=== PATIENT | female | born 1955 | race Caucasian/White ===

== ENCOUNTER 2023-01-08 11:57 | Outpatient (REF) | payer MEDICARE, SELFPAY ==
--- NOTE | 2023-01-08 13:40 | PAPFT_PTH ---
PATIENT: Adele Novak LOC: [facility] U#:[id number] AGE/SX: 67/F ROOM: RE01/08/[address]: Marquez Rose DNP : 1955 BED: DIS: 01/08/2023 SPEC #: [id number] RECD: 01/09/23 13:02 STATUS: BENSON REQ #: [id number] KARRI: 01/08/23 13:[address]: Marquez Clement DEPT: [facility] Cytology RECD BY: Razia Shields Tissues: 1 - CX/ENDOCX FOR PAP SMEARS Procedures: PAP THIN PREP/UVM Screening HPV DNA PROBE Comments: [id number] (HPV 16 & 18/45)
--- OUTSIDE RECORDS SUMMARY | 2023-01-09 11:54 | XMS_ITS | Continuity of Care Document ---
Author Name Unknown Organization [facility] Address [address] [place] [address] Care Team Providers Care Contribution Solicitor Name Role Phone Edel Martinez Primary Care Physician Encounter [facility] Date(s): 10/21/22 - 10/21/22 [facility] [address] [place] [address] Encounter Diagnosis Obstructive sleep apnea, adult(Discharge Diagnosis) - 10/18/22 Discharge Disposition: Home or Self Care Attending Physician: Edel Martinez KIDS CLUB ATTENDANT Allergies, Adverse Reactions, Alerts No Known Medication Allergies Assessment and Plan Future Appointments Functional Status 10/21/22 Other exposure to Infectious Disease Non e Immunizations Given and Recorded Vaccine Date Status Refusal Reason tetanus-diphth toxoids (Td) adult/adol 10/24/21 Re corded tetanus-diphth toxoids (Td) adult/adol 10/06/02 Re corded influenza virus vaccine, live 10/24/21 Recorded influenza virus vaccine, live 07/12/20 Recorded influenza virus vaccine, live 07/26/19 Recorded influenza virus vaccine, live 08/19/18 Recorded influenza virus vaccine, live 07/30/17 Recorded influenza virus vaccine, live 07/24/16 Recorded SARS-CoV-2 (COVID-19) mRNA-1273 vaccine 09/04/21 R ecorded SARS-CoV-2 (COVID-19) mRNA-1273 vaccine 02/16/21 R ecorded SARS-CoV-2 (COVID-19) mRNA-1273 vaccine 01/19/21 R ecorded pneumococcal 23-polyvalent vaccine 12/18/20 Record ed zoster vaccine, inactivated 12/18/20 Recorded zoster vaccine, inactivated 10/09/20 Recorded zoster vaccine live 07/30/17 Recorded tetanus/diphth/pertuss (Tdap) adult/adol 10/06/11 Recorded influenza virus vaccine, inactivated 09/04/11 Neo rded influenza virus vaccine, inactivated 08/21/10 Neo rded Medications !-Augmentin 875 mg-125 mg oral tablet 1 tab, Oral, every 12 hr, # 20 tab, 0 Refill(s), Pharmacy: [id number], 160, cm, 07/21/22 23:30:00 EDT, Height/Length Dosing, 68.04, kg, 07/21/22 23:30:00 EDT, Weight Dosing Start Date: 07/21/22 Stop Date: 07/31/22 Status: Ordered amoxicillin-clavulanate 875 mg-125 mg oral tablet 0 Refill(s) Start Date: 04/01/22 Status: Ordered multivitamin adult, oral tablet 0 Refill(s) Start Date: 04/01/22 Status: Ordered ProAir HFA 90 mcg/inh inhalation aerosol 0 Refill(s) Start Date: 04/01/22 Status: Ordered sertraline 50 mg oral tablet 0 Refill(s) Start Date: 04/01/22 Status: Ordered simvastatin 40 mg oral tablet 0 Refill(s) Start Date: 04/01/22 Status: Ordered Vitamin C 1000 mg oral tablet 1,000 mg = 1 tab, Oral, Daily, # 30 tab, 0 Refill(s) Start Date: 04/01/22 Status: Ordered Vitamin D3 0 Refill(s) Start Date: 04/01/22 Status: Ordered Problem List Condition Confirmation Course Effective Dates Status H ealth Status Informant Abscess of Bartholin's gland Confirmed Active Adult health examination Confirmed Active Cough Confirmed 01/07/20 Active Depressive disorder Confirmed Active Disorder of upper respiratory system Confirmed Active Generalized anxiety disorder Confirmed Active Hyperlipidemia Confirmed Active Menopausal symptom Confirmed Active Obstructive sleep apnea, adult Confirmed Active Pain in left foot Confirmed Active Snoring Confirmed Active Vital Signs Most recent to oldest [Reference Range]: 1 Peripheral Pulse Rate [60-100 bpm] 70 bp m (10/21/22 10:27 AM) Blood Pressure [90-140/60-90 mmHg] 140/7 4mmHg (10/21/22 10:27 AM) Weight 70.31 kg (10/21/22 10:27 AM) Weight Measured (lbs) 155.007 lb (10/21/22 10:27 AM) Height 160 cm (10/21/22 10:27 AM) Height/Length Measured (inches) 62.99 in ch (10/21/22 10:27 AM) BSA Measured 1.77 m2 (10/21/22 10:27 AM) Body Mass Index 27.46 kg/m2 (10/21/22 10:27 AM) Social History Social History Type Response Tobacco Never tobacco user T obacco Use:. Sex Female Progress note * Nj Harrison M: PERFORM Event Display: Progress Note - Physician Authored Date: [id number] Physician Outpatient Note * Edel Martinez KIDS CLUB ATTENDANT: PERFORM Event Display: Office Clinic Note Physician Authored Date: [id number] BHUMI NOVAKNDA Tani :1955 Age:67 years Sex:Female Visit Date:10/21/2022 Primary Care Physician: Edel Martinez NP History of Present Illness Adele Novak??has a Zoom visit for SONIA follow-up. She has given consent to have a telehealth visit. Patient is at home, provider is in the office. ?? Adele was seen by me on 06/14/22. She has a medical history to include depression, anxiety and HLD.? She noted symptoms of??snoring and witnessed apneas when under anesthesia. ?? Polysomnogram??05/09/22(BMI??25.45). I.??Sleep efficiency was??82%, AHI??28.8/hr, RDI??30.2/hr, REM AHI??8.7/hr, REM RDI??8.7/hr, supine AHI??80/hr, right lateral AHI??34/hr, left lateral AHI??14/hr, sp02 lili??79%,??19??minutes were spent at a saturation <88%, arousal index??19/hr, PLMi??3.8/hr, PLM arousal index??0.9/hr. EKG showed NSR??with one brief episode SVT. ?? Last visit I ordered CPAP 6-16 cm. ?? Adele tells me she is using her CPAP every night. She has had her CPAP since 07/15/22. She says things are going pretty good overall. She is using a full face mask. She has to put it on tight in order to prevent leaks and it leaves rodriguez on her face. She tried nasal pillows but they would not stay on at night. The air pressure feels strong initially but she adjusts quickly. She is waking with a VERY dry mouth. She did adjust the humidity but the developed water in her mask. She says right away when she started using CPAP she is feeling better and wakes up much more refreshed and gets out of bed much easier. She has better energy throughout the day. She is familiar with cleaning and changing out parts. ?? ESS today 04/28 COMPLIANCE DATA REVIEWED WITH PATIENT: Dates 09/15/22-10/14/22,??Days used , average use??7 hours, 6 minutes,??median pressure 10.9??cm,??95 th percentile pressure??13.6 cm,??95 th percentile air leak 2.8??lpm, AHI 0.2/hr Physical Exam Vitals & Measurements HR:??70??(Peripheral)?? BP:??140/74?? SpO2:??98%?? HT:??160??cm?? WT:??70.31??kg?? BMI:??27.46?? BSA:??1.77?? Assessment/Plan 1.??Obstructive sleep apnea, adult??G47.33 SONIA diagnosed on PSG in 05/2022 with an AHI of 28.8/hr. She has excellent compliance and reduction in AHI.?? She is sleeping better and feeling significantly better rested and continued use of CPAP isrecommended. She had has some problems with mask and strap rodriguez on her face so I showed her the pad SSEV website and recommended liner/strap pads. She also has trouble with condensation and ry mouth so I explained how to increase the tube temp to prevent this. She had questions about traveling with CPAP and the Inrpire and I answered these questions for her. She is advised to keep up with the routine maintenance of the machine and to clean/replace parts as needed. I will see her back in six months. She is asked to call our office for any sleep related questions or concerns. I provided greater than 30 minutes in the care of this patient, more than half the time was spent in [id number] counseling. Ordered: Follow-Up Appointment Request MARÍA, *Est. 04/20/23 +/- 28 days, Future Order, In Approximately, [facility] ?? CC: [facility] Problem List/Past Medical History Ongoing Abscess of Bartholin's gland Adult health examination Cough Depressive disorder Disorder of upper respiratory system Generalized anxiety disorder Hyperlipidemia Menopausal symptom Obstructive sleep apnea, adult Pain in left foot Snoring Historical Diabetes mellitus screening Pharyngitis Medications !-Augmentin 875 mg-125 mg oral tablet, 1 tab, Oral, every 12 hr amoxicillin-clavulanate 875 mg-125 mg oral tablet multivitamin adult, oral tablet ProAir HFA 90 mcg/inh inhalation aerosol sertraline 50 mg oral tablet simvastatin 40 mg oral tablet Vitamin C 1000 mg oral tablet, 1000 mg= 1 tab, Oral, Daily Vitamin D3 Allergies No Known Medication Allergies Social History Electronic Cigarette/Vaping Electronic Cigarette Use: Never. Tobacco Never tobacco user Tobacco Use:. Immunizations Vaccine Date Status tetanus-diphth toxoids (Td) adult/adol 10/24/2021 Recorded influenza virus vaccine, live 10/24/2021 Recorded SARS-CoV-2 (COVID-19) mRNA-1273 vaccine 09/04/2021 Recorded SARS-CoV-2 (COVID-19) mRNA-1273 vaccine 02/16/2021 Recorded SARS-CoV-2 (COVID-19) mRNA-1273 vaccine 01/19/2021 Recorded pneumococcal 23-polyvalent vaccine 12/18/2020 Recorded zoster vaccine, inactivated 12/18/2020 Recorded zoster vaccine, inactivated 10/09/2020 Recorded influenza virus vaccine, live 07/12/2020 Recorded influenza virus vaccine, live 07/26/2019 Recorded influenza virus vaccine, live 08/19/2018 Recorded zoster vaccine live 07/30/2017 Recorded influenza virus vaccine, live 07/30/2017 Recorded influenza virus vaccine, live 07/24/2016 Recorded tetanus/diphth/pertuss (Tdap) adult/adol 10/06/2011 Recorded influenza virus vaccine, inactivated 09/04/2011 Recorded influenza virus vaccine, inactivated 08/21/2010 Recorded tetanus-diphth toxoids (Td) adult/adol 10/06/2002 Recorded Electronically Signed on 10/21/22 11:01 AM Edel Martinez NP Patient Care team information Personnel Name: Edel Martinez NP Address: Address: [address] [place] [address] [place], [place] [address]
--- OUTSIDE RECORDS SUMMARY | 2023-01-09 11:54 | XMS_ITS | Continuity of Care Document ---
Author Name Unknown Organization [facility] Address [address] [place] [address] Care Team Providers Care Law Clerk Name Role Phone Edel Martinez Primary Care Physician Encounter [facility] Date(s): 07/21/22 - 07/21/22 [facility] [address] [place] [address] Encounter Diagnosis Otitis media(Discharge Diagnosis) - 07/21/22 Discharge Disposition: Home or Self Care Attending Physician: Addis Sandhu MD Admitting Physician: Addis Sandhu MD Allergies, Adverse Reactions, Alerts No Known Medication Allergies Assessment and Plan Future Appointments Functional Status 07/21/22 Family Member Travel History No recent t ravel Recent Travel History No recent travel Other exposure to Infectious Disease COV ID-19 Symptoms Present Immunizations Given and Recorded Vaccine Date Status [...] hr, # 20 tab, 0 Refill(s), Pharmacy: [facility] #[id number], 160, cm, 07/21/22 23:30:00 EDT, Height/Length Dosing, [...] Most recent to oldest [Reference Range]: 1 Temperature Temporal Artery [36-38 Deg C ] 36.7 Deg C (07/21/22 11:24 PM) Peripheral Pulse Rate [60-100 bpm] 69 bp m (07/21/22 11:24 PM) Respiratory Rate [12-24 br/min] 18 br/mi n (07/21/22 11:24 PM) Blood Pressure [90-140/60-90 mmHg] 155/7 9mmHg *HI* (07/21/22 11:24 PM) Weight Dosing 68.04 kg (07/21/22 11:30 PM) Weight Estimated 68.04 kg (07/21/22 11:24 PM) Height/Length Dosing 160.000 cm (07/21/22 11:30 PM) Height/Length Estimated 160.000 cm (07/21/22 11:24 PM) Social History Social History Type Response Tobacco Never tobacco user T obacco Use:. Sex Female Hospital Discharge Instructions Patient Education 07/21/2022 22:34:18 Otitis Media, Adult Otitis Media, Adult Otitis media occurs when there is inflammation and fluid in the middle ear with signs and symptoms of an acute infection. The middle ear is a part of the ear that contains bones for hearing as well as air that helps send sounds to the brain. When infected fluid builds up in this space, it causes pressure and can lead to an ear infection. The eustachian tube connects the middle ear to the back of the nose (nasopharynx) and normally allows air into the middle ear. If the eustachian tube becomes blocked, fluid can build up and become infected. What are the causes? This condition is caused by a blockage in the eustachian tube. This can be caused by mucus or by swelling of the tube. Problems that can cause a blockage include: ??? A cold or other upper respiratory infection. ??? Allergies. ??? An irritant, such as tobacco smoke. ??? Enlarged adenoids. The adenoids are areas of soft tissue located high in the back of the throat, behind the nose and the roof of the mouth. They are part of the body's defense system (immune system). ??? A mass in the nasopharynx. ??? Damage to the ear caused by pressure changes (barotrauma). What increases the risk? You are more likely to develop this condition if you: ??? Smoke or are exposed to tobacco smoke. ??? Have an opening in the roof of your mouth (cleft palate). ??? Have gastroesophageal reflux. ??? Have an immune system disorder. What are the signs or symptoms? Symptoms of this condition include: ??? Ear pain. ??? Fever. ??? Decreased hearing. ??? Tiredness (lethargy). ??? Fluid leaking from the ear, if the eardrum is ruptured or has burst. ??? Ringing in the ear. How is this diagnosed? This condition is diagnosed with a physical exam. During the exam, your health care provider will use an instrument called an otoscope to look in your ear and check for redness, swelling, and fluid. He or she will also ask about your symptoms. Your health care provider may also order tests, such as: ??? A pneumatic otoscopy. This is a test to check the movement of the eardrum. It is done by squeezing a small amount of air into the ear. ??? A tympanogram. This is a test that shows how well the eardrum moves in response to air pressurein the ear canal. It provides a graph for your health care provider to review. How is this treated? This condition can go away on its own within 3???5 days. But if the condition is caused by a bacterial infection and does not go away on its own, or if it keeps coming back, your health care providermay: ??? Prescribe antibiotic medicine to treat the infection. ??? Prescribe or recommend medicines to control pain. Follow these instructions at home: ??? Take jjah-kwg-hzdbxcb and prescription medicines only as told by your health care provider. ??? If you were prescribed an antibiotic medicine, take it as told by your health care provider. Donot stop taking the antibiotic even if you start to feel better. ??? Keep all follow-up visits. This is important. Contact a health care provider if: ??? You have bleeding from your nose. ??? There is a lump on your neck. ??? You are not feeling better in 5 days. ??? You feel worse instead of better. Get help right away if: ??? You have severe pain that is not controlled with medicine. ??? You have swelling, redness, or pain around your ear. ??? You have stiffness in your neck. ??? A part of your face is not moving (paralyzed). ??? The bone behind your ear (mastoid bone) is tender when you touch it. ??? You develop a severe headache. Summary ??? Otitis media is redness, soreness, and swelling of the middle ear, usually resulting in pain and decreased hearing. ??? This condition can go away on its own within 3???5 days. ??? If the problem does not go away in 3???5 days, your health care provider may give you medicinesto treat the infection. ??? If you were prescribed an antibiotic medicine, take it as told by your health care provider. ??? Follow all instructions that were given to you by your health care provider. This information is not intended to replace advice given to you by your health care provider. Make sure you discuss any questions you have with your health care provider. Document Revised: 12/31/2021 Document Reviewed: 12/31/2021 Elsevier Patient Education ?? 2021 [employer] Follow Up Care 07/21/2022 23:24:44 With:Follow up with primary care provider Address: When:1 to 2 weeks Comments:as needed Patient Care team information Personnel Name: Edel Martinez NP Address: Address: [address] [place] [address] [address] [place], [place] [address]
--- OUTSIDE RECORDS SUMMARY | 2023-01-09 11:54 | XMS_ITS | Continuity of Care Document ---
Author Name Unknown Organization [facility] Address [address] [place] [address] Care Team Providers Care Operator/Assistant Foreman Name Role Phone Atul Anthony Primary Care Physician Encounter [facility] Date(s): 11/12/22 - 11/12/22 [facility] [address] [place] [address] Encounter Diagnosis Screening for breast cancer(Discharge Diagnosis) - 11/12/22 Discharge Disposition: Home or Self Care Attending Physician: Atul Anthony NP Admitting Physician: Atul Anthony NP Referring Physician: Atul Anthony BULB ASSEMBLER Allergies, Adverse Reactions, Alerts No Known Medication Allergies Assessment and Plan Future Appointments Immunizations Given and Recorded Vaccine Date Status [...] hr, # 20 tab, 0 Refill(s), [id number], 160, cm, 07/21/22 23:30:00 EDT, Height/Length Dosing, [...] left foot Confirmed Active Snoring Confirmed Active Social History Social History Type Response Tobacco Never tobacco user T obacco Use:. Sex Female Patient Care team information Personnel Name: Atul Anthony NP
== END 2023-01-08 11:58 | disposition home or self-care (01) ==
LOC: LBN 11:57
PROVIDERS: PCP Nurse Practitioner Family; Visit Provider Nurse Practitioner Family
DX: Z11.51 Encounter for screening for human papillomavirus (HPV); R87.810 Cervical high risk human papillomavirus (HPV) DNA test positive; Z01.411 Encounter for gynecological examination (general) (routine) with abnormal findings
CPT/HCPCS: 88142; 87624

== ENCOUNTER 2023-01-22 02:54 | Outpatient (CLI) | payer MEDICARE, SELFPAY ==
[2023-01-22 12:09] LABS: Abs Immature Grans 0.01 10^3/uL (0.0-0.06); Absolute Basophil Count 0.02 10^3/uL (0.0-0.2); Absolute Eosinophil Count 0.16 10^3/uL (0.0-0.7); Absolute Lymphocyte Count 2.21 10^3/uL (1.2-3.4); Absolute Neutrophil Count 1.86 10^3/uL (1.2-6.7); Basophils % 0.4; Eosinophils % 3.4; HCT 39.6 % (36.0-46.0); HGB 13.5 g/dL (11.2-15.7); Immature Grans % 0.2; Lymphocytes % 46.4; MCH 30.8 pg (27.0-33.0); MCHC 34.1 % (32.0-36.0); MCV 90 fL (80-95); MPV 10.6 fL (8.0-11.0); Monocytes % 10.5; Neutrophils % 39.1; Platelet Count 289 10^3/uL (130-400); RBC 4.39 10^6/uL (3.93-5.22); RDW 12.9 % (11.7-14.6); RDW-SD 42.5 fL; WBC 4.76 10^3/uL (4.4-10.8)
[2023-01-22 12:27] LABS: ALT 40 U/L (14-59); AST 28 U/L (15-37); Alkaline Phosphatase 87 U/L (46-116); Anion Gap 6.5 mmol/L (3-11); BUN 14 mg/dL (7-18); Bilirubin, Total 0.5 mg/dL (0.2-1.0); CO2 29.5 mmol/L (21.0-32.0); CREATININE 0.9 mg/dL (0.55-1.02); Calcium 9.7 mg/dL (8.5-10.1); Calculated LDL 134 mg/dL (<100); Chloride 104 mmol/L (98-107); Cholesterol 230 mg/dL (<200); Estimated GFR 70.95 (mL/min/1.73m2); Glucose 104 mg/dL (74-106); HDL Cholesterol 77 mg/dL (40-60); Potassium 3.9 mmol/L (3.5-5.1); Sodium 140 mmol/L (136-145); Total Protein 8.4 g/dL (6.4-8.2); Triglyceride 95 mg/dL (<150)
[2023-01-23 14:22] LABS: IgA 315 mg/dL (85-499); Interpretation (See Note); Tissue Transglutaminase IgA <1.2 U/mL (<4.0)
== END 2023-01-22 02:55 | disposition home or self-care (01) ==
LOC: LBO 02:54
PROVIDERS: PCP Nurse Practitioner Family; Visit Provider Nurse Practitioner Family
DX: E78.5 Hyperlipidemia, unspecified (principal); K52.9 Noninfective gastroenteritis and colitis, unspecified
CPT/HCPCS: 36415; 80053; 80061; 82784; 83516; 85025

== ENCOUNTER → 2023-11-13 01:38 | Outpatient (CLI) | payer MEDICARE, SELFPAY ==
--- NOTE | 2023-11-13 14:48 | DI.MAMMO_ITS ---
Exam(s) MAMMO SCREENING EXAM: MAMMO SCREENING CLINICAL HISTORY: screening,z12.39. TECHNIQUE: Bilateral full field digital CC and MLO mammographic images were obtained with 3D tomosyn thesis and utilizing computer aided detection (CAD). COMPARISON: Prior outside mammograms have not arrived FINDINGS: There are no CAD designations No significant focal left breast findings. In the right breast there is asymmetric density located 4 cm in from the nipple slightly lateral of c enter on the CC view, this measuring approximately 9 x 7 mm. Spot compression view and ultrasound re commended. There are no malignant-appearing microcalcification groups is region or elsewhere in either breast. There is no significant architectural distortion nor skin thickening-retraction. IMPRESSION: 1. No radiographic evidence of malignancy in left breast. 2. Asymmetric density-possible nodule in the right breast. Spot compression views and ultrasound rec ommended. BI-RADS Category 0 - Assessment Incomplete: Need additional imaging evaluation Breast Density - Category B - Scattered areas of fibroglandular density Breast density Category C or D implies that the patient has dense breast tissue. Dense breast tissue can make it harder to find cancer on a mammogram. Dense breast tissue is also associated with an incr eased risk of breast cancer. This information about the result of the mammogram report was provided to the patient to raise their awareness. Use this report when you speak with the patient about their risks for breast cancer, which includes their family history. At that time, you may recommend additional screening tests (Ultrasoun d or MRI) as these tests may add significant information. A negative radiographic report should not delay biopsy if a dominant or clinically suspicious mass is present. Up to ten percent of cancers are not identified on mammography. A negative report may reinforce clinical impression. Adenosis and dense breasts may obscure an underlying neoplasm. False positive reports average 6 to 10%. Patient will receive a letter notifying them of these results.
== END ==
PROVIDERS: PCP Nurse Practitioner Family; Visit Provider Nurse Practitioner Family
DX: Z12.31 Encounter for screening mammogram for malignant neoplasm of breast (principal)
CPT/HCPCS: 77063; 77067

== ENCOUNTER → 2023-12-02 02:48 | Outpatient (CLI) | payer MEDICARE, SELFPAY ==
--- NOTE | 2023-12-02 | DI.US_ITS ---
Exam(s) MG MAMMO SCREEN CALL BACK UNI US BREAST RT LIMITED EXAM: MG MAMMO SCREEN CALL BACK UNI CLINICAL HISTORY: ASYMMETRIC DENSITY 4 CM IN FROM NIPPLE, RT BREAST, 9 X 7 MM. TECHNIQUE: Craniocaudal and mediolateral oblique spot compression digital Mammography views of the right breast with Tomosynthesis and right breast ultrasound. COMPARISON: Prior outside examinations are now available for comparison at this time. MG MG MAMMO SCREENING from 11/13/2023 US US BREAST RT LIMITED from 12/02/2023 FINDINGS: Mammography/Tomosynthesis: Masses/Architectural Distortion: None seen. Microcalcifictions: No suspicious pleomorphic-type are seen. Skin Thickening/Nipple Retraction: None. Right breast US: Echotexture: Normal appearance of the glandular tissue. Shadowing: No suspicious foci. Cyst: Ovoid cyst 11 o'clock position 3 cm from the nipple measuring 5 by 8 x 3 millimeters Solid lesions: None seen. Ductal dilation: None. IMPRESSION: 1. No evidence of malignancy is noted. 2. Unless there is more urgent need, follow-up screening mammography is recommended, as per [place] [employer] guidelines. 3. The findings were discussed with the patient on the date of the examination. BI-RADS Category 2 - Benign Findings Breast Density - Category B - Scattered areas of fibroglandular density A mammogram that demonstrates density of C or D indicates the patient's breast tissue is dense. Dense breast tissue is very common and is not abnormal, but dense breast tissue can make it harder to find cancer on a mammogram. Also, dense breast tissue may increase their breast cancer risk. This informa tion about the result of the mammogram report was provided to the patient to raise their awareness. U se this report when you speak with the patient about their risks for breast cancer, which includes th eir family history. At that time, you may recommend for more screening tests (Ultrasound or MRI) as t hey might be useful based on their risk. A negative radiographic report should not delay biopsy if a dominant or clinically suspicious mass is present. Up to ten percent of cancers are not identified on mammography. A negative report may reinforce clinical impression. Adenosis and dense breasts may obscure an underlying neoplasm. False positive reports average 6 to 10%. Patient will receive a letter notifying them of these results.
== END ==
PROVIDERS: PCP Nurse Practitioner Family; Visit Provider Nurse Practitioner Family
DX: R92.8 Other abnormal and inconclusive findings on diagnostic imaging of breast (principal); Z12.31 Encounter for screening mammogram for malignant neoplasm of breast
CPT/HCPCS: 76642; 77063; 77067

== ENCOUNTER 2024-03-04 15:30 | Outpatient (REF) | payer MEDICARE, BC, SELFPAY ==
--- NOTE | 2024-03-04 14:15 | PAPFT_PTH ---
PATIENT: Adele Novak LOC: [facility] U#:[id number] AGE/SX: 68/F ROOM: RE03/04/[address]: ANITA Nichole : 1955 BED: DIS: 03/04/2024 SPEC #: [id number] RECD: 03/05/24 12:53 STATUS: BENSON REQ #: [id number] KARRI: 03/04/24 14:[address]: Morelia Lam DEPT: [facility] Cytology RECD BY: Razia Shields Tissues: 1 - CX/ENDOCX FOR PAP SMEARS Procedures: PAP THIN PREP/UVM Screening HPV DNA PROBE Comments: [id number]
== END 2024-03-04 15:31 | disposition home or self-care (01) ==
LOC: LBN 15:30
PROVIDERS: PCP Nurse Practitioner Family; Visit Provider Nurse Practitioner Family
DX: Z12.4 Encounter for screening for malignant neoplasm of cervix (principal)
CPT/HCPCS: 88142; 87624

== ENCOUNTER → 2024-03-11 04:45 | Outpatient (CLI) | payer MEDICARE, BC, SELFPAY ==
--- NOTE | 2024-03-11 06:45 | DI.DEXA_ITS ---
Exam(s) XR DEXA BONE DENSITY W/WO CHELSEA EXAM: XR DEXA BONE DENSITY W/WO CHELSEA CLINICAL HISTORY: osteoporosis screening, postmenopausal status, Z78.0 TECHNIQUE: Routine DEXA evaluation of the lumbar spine, hip, or forearm. COMPARISON: No exams were available for comparison FINDINGS: Performed on a Hologic unit. Lateral image: No compression fracture evident. Lumbar Spine total T-score: -2.1 Hip total T-score:-1.8 Independent reading at the level of the femoral neck yields T-score of -2.3 Forearm total T-score: -1.1 IMPRESSION: Bone mineral density measures in the osteopenia range. Fracture risk is moderate. Note: Any spine fracture indicates 5x risk for subsequent spine fracture and 2x risk for subsequent h ip fracture. World Health Organization criteria for BMD interpretation classify patients: Normal...... T- Score at or above -1.0 Osteopenic... T- Score between -1.0 and -2.5 Osteoporosis... T-Score at or below -2.5
== END ==
PROVIDERS: PCP Nurse Practitioner Family; Visit Provider Nurse Practitioner Family
DX: Z78.0 Asymptomatic menopausal state (principal); Z13.820 Encounter for screening for osteoporosis; M85.89 Other specified disorders of bone density and structure, multiple sites
CPT/HCPCS: 77080

== ENCOUNTER 2024-03-11 05:08 | Outpatient (CLI) | payer MEDICARE, BC, SELFPAY ==
[2024-03-11 09:35] LABS: Hemoglobin A1C 5.6 % (<5.7)
[2024-03-11 10:12] LABS: Anion Gap 7.9 mmol/L (3-11); BUN 15 mg/dL (7-18); CO2 29.1 mmol/L (21.0-32.0); CREATININE 0.8 mg/dL (0.55-1.02); Calcium 9.2 mg/dL (8.5-10.1); Calculated LDL 161 mg/dL (<100); Chloride 104 mmol/L (98-107); Cholesterol 259 mg/dL (<200); Estimated GFR 81.21 (mL/min/1.73m2); Glucose 106 mg/dL (74-106); HDL Cholesterol 73 mg/dL (40-60); Potassium 3.8 mmol/L (3.5-5.1); Sodium 141 mmol/L (136-145); TSH (W/Ref FT4) 2.39 uIU/mL (0.36-3.74); Triglyceride 125 mg/dL (<150)
[2024-03-12 08:52] LABS: Hepatitis C Ab w Rflx HCV PCR Negative (Negative)
[2024-03-12 08:58] LABS: HBs Antibody, Quant 3.9 mIU/mL (See Note); Hep B Surface Ab Negative (See Note); Hepatitis B Core Antibody Negative (Negative); Hepatitis B Surface Antigen Negative (Negative)
[2024-03-12 12:00] LABS: HIV-1/2 Ag & Ab Screen Negative (Negative)
== END 2024-03-11 05:09 | disposition home or self-care (01) ==
PROVIDERS: PCP Nurse Practitioner Family; Visit Provider Nurse Practitioner Family
DX: Z00.00 Encounter for general adult medical examination without abnormal findings (principal); R73.01 Impaired fasting glucose; E78.5 Hyperlipidemia, unspecified; Z11.59 Encounter for screening for other viral diseases
CPT/HCPCS: 36415; 77080; 80048; 80061; 86704; 86706; 86803; 87340; 87389; 83036; 84443

== ENCOUNTER 2024-04-19 04:07 | Outpatient (CLI) | payer MEDICARE, BC, SELFPAY ==
--- NOTE | 2024-04-20 16:23 | TELEFU_ITS ---
Date of service: 04/19/24 Time of Service: 13:00 Nutrition Note NOTE: Adele in for nutrition visit after referral for HLD with elevated BP. She is 69yo and was 70.42kg, 63 with a BMI of 27.5kg/m2 at her last provider visit 04/02/24. Her LDL is 161 up from 130's a year ago. She takes vitamin C, calcium, MVI, vitamin D3 with Mag. She has a PMH including SONIA, depression/anxiety,osteopenia and frequent diarrhea. She usually eats 3 meals per day and will snack - she states she's been trying to graze more lately. She relates a typical day's intake and although not inherently bad choices, her usual diet is assessed as low in fiber and plant protein and specific LDL- lowering food choices such as whole soy, legumes, nuts and seeds, tea, anti- inflammatory spices, etc... We went over some guidance in having 3 meals and 0-2planned snacks per day (snacks should be 2-3 food choices and include high fiber and protein choices) and choosing more traditional and minimally processed food choices/targeting specific ones often to provide her the food as medicine she needs to help lower LDL. REviewed imporatnce of weight bearing exercise for LDL as well as bone health. reviewed menu planning for high fiber diet with targeting LDL-lowering foods at least 3 times per week, if not daily - legumes, nuts/seeds, unsweetened soy milk/tofu/edamame, roled or steel cut oats, berries, garlic, cocoa, green and hibiscus teas. and others. Gave pt my card to contact with any future needs for more resoureces, follow up visits, any questions answered regarding nutrition strategies to help improve her cholesterol values/ratios Time Spent in Nutritional Counseling and Treatment: 40min
== END 2024-04-19 04:08 | disposition home or self-care (01) ==
LOC: DS 04:07
PROVIDERS: PCP Nurse Practitioner Family; Visit Provider Dietitian, Registered
DX: E78.5 Hyperlipidemia, unspecified (principal); R03.0 Elevated blood-pressure reading, without diagnosis of hypertension; Z71.3 Dietary counseling and surveillance
CPT/HCPCS: 00123; 97802

== ENCOUNTER 2025-04-12 02:17 | Outpatient (CLI) | payer MEDICARE, BC, SELFPAY ==
--- NOTE | 2025-04-12 06:15 | DI.MAMMO_ITS ---
Exam(s) MAMMO SCREENING EXAM: MAMMO SCREENING CLINICAL HISTORY: screening,z12.39. TECHNIQUE: Bilateral full field digital CC and MLO mammographic images were obtained with 3D tomosynthesis and utilizing computer aided detection (CAD). COMPARISON: Prior mammograms were reviewed. Prior ultrasound of 12/02/2023 was also reviewed. FINDINGS: There has been no significant change in the appearance and distribution of the fibroglandular tissue. There are no new spiculated masses nor new malignant appearing microcalcification groups. There is no significant architectural distortion nor skin thickening-retraction. IMPRESSION: No radiographic evidence of malignancy. BI-RADS Category 1 - Negative Breast Density - Category B - There are scattered areas of fibroglandular density. Breast density Category C or D implies that the patient has dense breast tissue. Dense breast tissue can make it harder to find cancer on a mammogram. Dense breast tissue is also associated with an increased risk of breast cancer. This information about the result of the mammogram report was provided to the patient to raise their awareness. Use this report when you speak with the patient about their risks for breast cancer, which includes their family history. At that time, you may recommend additional screening tests (Ultrasound or MRI) as these tests may add significant information. A negative radiographic report should not delay biopsy if a dominant or clinically suspicious mass is present. Up to ten percent of cancers are not identified on mammography. A negative report may reinforce clinical impression. Adenosis and dense breasts may obscure an underlying neoplasm. False positive reports average 6 to 10%. Patient will receive a letter notifying them of these results.
== END 2025-04-12 02:37 ==
LOC: DI 02:17
PROVIDERS: PCP Nurse Practitioner Family; Visit Provider Nurse Practitioner Family
DX: Z12.31 Encounter for screening mammogram for malignant neoplasm of breast (principal); R92.323 Mammographic fibroglandular density, bilateral breasts
CPT/HCPCS: 77063; 77067

== ENCOUNTER 2025-06-17 14:58 | Outpatient (CLI) | payer MEDICARE, BC, SELFPAY ==
[2025-06-17 10:45] LABS: ALT 35 U/L (14-59); AST 30 U/L (15-37); Albumin 4.0 g/dL (3.4-5.0); Alkaline Phosphatase 101 U/L (46-116); Anion Gap 9.5 mmol/L (3-11); BUN 13 mg/dL (7-18); Bilirubin, Total 0.4 mg/dL (0.2-1.0); CO2 28.5 mmol/L (21.0-32.0); Calcium 9.9 mg/dL (8.5-10.1); Calculated LDL 176 mg/dL (<100); Chloride 102 mmol/L (98-107); Cholesterol 264 mg/dL (<200); Estimated GFR 69.64 (mL/min/1.73m2); Glucose 106 mg/dL (74-106); HDL Cholesterol 71 mg/dL (>or=50); Potassium 4.0 mmol/L (3.5-5.1); Sodium 140 mmol/L (136-145); Total Protein 8.2 g/dL (6.4-8.2); Triglyceride 87 mg/dL (<150)
== END 2025-06-17 14:59 | disposition home or self-care (01) ==
LOC: LBO 14:58
PROVIDERS: PCP Nurse Practitioner Family; Visit Provider Nurse Practitioner Family
DX: E78.5 Hyperlipidemia, unspecified (principal); Z00.00 Encounter for general adult medical examination without abnormal findings; F41.1 Generalized anxiety disorder; F33.9 Major depressive disorder, recurrent, unspecified; M85.80 Other specified disorders of bone density and structure, unspecified site
CPT/HCPCS: 36415; 80053; 80061